=== PATIENT | female | born 1955 | race Caucasian/White ===

== ENCOUNTER 2019-08-10 16:29 | Emergency (ER) | payer SELFPAY ==
[~2019-08-10] VITALS: Ht 154.9 cm; Wt 70.0 kg
[2019-08-10 16:52] VITALS: BP 126/67
== END 2019-08-10 20:00 | disposition left against medical advice (07) ==
LOC: ER 16:29
DX: M25.562 Pain in left knee (principal); Z53.21 Procedure and treatment not carried out due to patient leaving prior to being seen by health care provider